=== PATIENT | female | born 1945 | race Caucasian/White ===

== ENCOUNTER 2018-12-03 02:49 | Emergency (ER) | payer MEDICARE ==
--- NOTE | 2018-12-03 03:30 | EDM.PDOC ---
ED HPI GENERAL MEDICAL PROBLEM - General Chief Complaint: Fever Stated Complaint: WEAK Time Seen by Provider: 12/03/18 03:05 Source of Information: Reports: Patient, Family History Limitations: Reports: No Limitations - History of Present Illness INITIAL COMMENTS - FREE TEXT/NARRATIVE: c/o cough and fever x 2 days was weak tonight and had difficulty getting out of bed and standing, did fall once 2y ago, here with has had flu vax with same sxs 5d ago, now getting over them no prior CV or pulmonary problems does have LE edema, takes a diuretic, does have rales at the bases chest has been sore from coughing took one APAP today, does not know the dose - Related Data Allergies Allergy/AdvReac Type Severity Reaction Status Date / Time latex Allergy Rash Verified 12/03/18 02:59 Home Meds: Home Meds Calcium Carbonate/Vitamin D3 [Calcium 500 + Vit D Caplet] 1 tab DAILY 12/03/18 [ History] Lisinopril 5 mg DAILY 12/03/18 [History] Multivit-Min/FA/Lycopene/Lut [Complete Multi 50+] 1 tab DAILY 12/03/18 [History] Omeprazole 20 mg DAILY 12/03/18 [History] Oxybutynin 2.5 mg PO TID 12/03/18 [History] Venlafaxine HCl [Venlafaxine ER] 37.5 mg DAILY 12/03/18 [History] atorvaSTATin [Lipitor] 10 mg BEDTIME 12/03/18 [History] ED ROS GENERAL - Review of Systems Review Of Systems: See Below Constitutional: Reports: Fever, Weakness HEENT: Reports: No Symptoms Respiratory: Reports: Cough. Denies: Sputum Cardiovascular: Reports: Chest Pain Endocrine: Reports: No Symptoms GI/Abdominal: Reports: No Symptoms : Reports: No Symptoms Musculoskeletal: Reports: No Symptoms Skin: Reports: No Symptoms Neurological: Reports: No Symptoms Psychiatric: Reports: No Symptoms Hematologic/Lymphatic: Reports: No Symptoms Immunologic: Reports: No Symptoms ED EXAM, GENERAL - Physical Exam Exam: See Below Exam Limited By: No Limitations General Appearance: Alert, WD/WN, No Apparent Distress, Other (pleasant, alert, cooperative, good eye contact, answer questions, rare harsh nonproductive cough) Eye Exam: Bilateral Eye: EOMI, Normal Inspection Ears: Normal External Exam, Normal Canal, Hearing Grossly Normal Nose: Normal Inspection, Normal Mucosa, No Blood Throat/Mouth: Normal Inspection, Normal Lips, Normal Teeth, Normal Gums, Normal Oropharynx, Normal Voice, No Airway Compromise Head: Atraumatic, Normocephalic Neck: Normal Inspection, Supple, Non-Tender, Full Range of Motion. No: Lymphadenopathy (R), Lymphadenopathy (L) Respiratory/Chest: No Respiratory Distress, No Accessory Muscle Use, Chest Non- Tender, Other (rales at bases posteriorly, otherwise clear, no wheeze) Cardiovascular: Regular Rate, Rhythm, No Murmur, No Rub, Other (1-2+ edema to knees b/l, 1+ to groin b/l, symmetric) GI/Abdominal: Soft, Non-Tender, No Distention Back Exam: Normal Inspection, Full Range of Motion, NT Extremities: Normal Range of Motion, Non-Tender Neurological: Alert, Oriented, CN II-XII Intact, Normal Cognition, No Motor/ Sensory Deficits Psychiatric: Normal Affect, Normal Mood Skin Exam: Warm, Dry, Intact, Normal Color, No Rash Lymphatic: No Adenopathy Course - Vital Signs Last Recorded V/S: Last Vital Signs Temp 37.8 C 12/03/18 04:00 Pulse 85 12/03/18 04:00 Resp 18 12/03/18 04:00 BP 142/64 H 12/03/18 04:00 Pulse Ox 99 12/03/18 04:00 - Orders/Labs/Meds Orders: Active Orders 24 hr Category Date Time Status EKG Documentation Completion [RC] ASDIRECTED Care 12/03/18 03:24 Active Chest 2V [CR] Stat Exams 12/03/18 03:23 Taken CULTURE BLOOD [BC] Stat Lab 12/03/18 03:20 Received Sodium Chloride 0.9% [Saline Flush] Med 12/03/18 04:54 Active 10 ml FLUSH ASDIRECTED PRN Peripheral IV Insertion Adult [OM.PC] Routine Oth 12/03/18 04:54 Ordered EKG 12 Lead [EK] Routine Ther 12/03/18 03:23 Ordered Medication Orders Sodium Chloride (Saline Flush) 10 ml FLUSH ASDIRECTED PRN PRN Reason: Keep Vein Open Labs: Laboratory Tests 12/03/18 12/03/18 12/03/18 Range/Units 03:20 03:45 03:45 WBC 5.4 (4.5-12.0) X10-3/uL RBC 4.56 (3.23-5.20) x10(6)uL Hgb 12.8 (11.5-15.5) g/dL Hct 39.9 (30.0-51.3) % MCV 87.6 (80-96) fL MCH 28.2 (27.7-33.6) pg MCHC 32.2 (32.2-35.4) g/dL RDW 13.0 (11.5-15.5) % Plt Count 241 (125-369) X10(3)uL MPV 7.8 (7.4-10.4) fL Neut % (Auto) 72.2 (46-82) % Lymph % (Auto) 13.2 (13-37) % [place] % (Auto) 13.7 H (4-12) % Eos % (Auto) 0 L (1.0-5.0) % Baso % (Auto) 1 (0-2) % Neut # (Auto) 4.0 (1.6-8.3) # Lymph # (Auto) 0.7 (0.6-5.0) # [place] # (Auto) 0.7 (0.0-1.3) # Eos # (Auto) 0.0 (0.0-0.8) # Baso # (Auto) 0.0 (0.0-0.2) # Sodium 139 (135-145) mmol/L Potassium 3.7 (3.5-5.3) mmol/L Chloride 101 (100-110) mmol/L Carbon Dioxide 27 (21-32) mmol/L BUN 13 (7-18) mg/dL Creatinine 0.9 (0.55-1.02) mg/dL Est Cr Clr Drug Dosing 49.51 mL/min Estimated GFR (MDRD) > 60 (>60) BUN/Creatinine Ratio 14.4 (9-20) Glucose 110 (80-116) mg/dL Calcium 9.1 (8.6-10.2) mg/dL Total Bilirubin 0.4 (0.1-1.3) mg/dL AST 34 H (5-25) IU/L ALT 26 (12-36) U/L Alkaline Phosphatase 75 (56-112) IU/L Troponin I < 0.017 L (<0.017-0.056) ng/mL NT-Pro-B Natriuret Pep (<=125) pg/mL Total Protein 7.8 (6.0-8.0) g/dL Albumin 3.6 (3.2-4.6) g/dL Globulin 4.2 g/dL Albumin/Globulin Ratio 0.9 Urine Color (YELLOW) Urine Appearance (CLEAR) Urine pH (5.0-6.5) Ur Specific Graham (1.010-1.025) Urine Protein (NEGATIVE) mg/dL Urine Glucose (UA) (NEGATIVE) mg/dL Urine Ketones (NEGATIVE) mg/dL Urine Occult Blood (NEGATIVE) Urine Nitrite (NEGATIVE) Urine Bilirubin (NEGATIVE) Urine Urobilinogen (NEGATIVE) mg/dL Ur Leukocyte Esterase (NEGATIVE) Urine RBC (0) Urine WBC (0) Ur Squamous Epith Cells (NS,R,O) Urine Bacteria (NS) 12/03/18 12/03/18 Range/Units 03:45 04:30 WBC (4.5-12.0) X10-3/uL RBC (3.23-5.20) x10(6)uL Hgb (11.5-15.5) g/dL Hct (30.0-51.3) % MCV (80-96) fL MCH (27.7-33.6) pg MCHC (32.2-35.4) g/dL RDW (11.5-15.5) % Plt Count (125-369) X10(3)uL MPV (7.4-10.4) fL Neut % (Auto) (46-82) % Lymph % (Auto) (13-37) % [place] % (Auto) (4-12) % Eos % (Auto) (1.0-5.0) % Baso % (Auto) (0-2) % Neut # (Auto) (1.6-8.3) # Lymph # (Auto) (0.6-5.0) # [place] # (Auto) (0.0-1.3) # Eos # (Auto) (0.0-0.8) # Baso # (Auto) (0.0-0.2) # Sodium (135-145) mmol/L Potassium (3.5-5.3) mmol/L Chloride (100-110) mmol/L Carbon Dioxide (21-32) mmol/L BUN (7-18) mg/dL Creatinine (0.55-1.02) mg/dL Est Cr Clr Drug Dosing mL/min Estimated GFR (MDRD) (>60) BUN/Creatinine Ratio (9-20) Glucose (80-116) mg/dL Calcium (8.6-10.2) mg/dL Total Bilirubin (0.1-1.3) mg/dL AST (5-25) IU/L ALT (12-36) U/L Alkaline Phosphatase (56-112) IU/L Troponin I (<0.017-0.056) ng/mL NT-Pro-B Natriuret Pep 182 H (<=125) pg/mL Total Protein (6.0-8.0) g/dL Albumin (3.2-4.6) g/dL Globulin g/dL Albumin/Globulin Ratio Urine Color Yellow (YELLOW) Urine Appearance Clear (CLEAR) Urine pH 5.0 (5.0-6.5) Ur Specific Graham 1.015 (1.010-1.025) Urine Protein Negative (NEGATIVE) mg/dL Urine Glucose (UA) Normal (NEGATIVE) mg/dL Urine Ketones Negative (NEGATIVE) mg/dL Urine Occult Blood Moderate H (NEGATIVE) Urine Nitrite Negative (NEGATIVE) Urine Bilirubin Negative (NEGATIVE) Urine Urobilinogen Normal (NEGATIVE) mg/dL Ur Leukocyte Esterase Negative (NEGATIVE) Urine RBC 0-5 (0) Urine WBC 0-5 (0) Ur Squamous Epith Cells Occasional (NS,R,O) Urine Bacteria Rare H (NS) Meds: Medications Generic Name Dose Route Start Last Admin Trade Name Freq PRN Reason Stop Dose Admin Sodium Chloride 10 ml 12/03/18 04:54 Saline Flush FLUSH ASDIRECTED PRN Keep Vein Open Discontinued Medications Generic Name Dose Route Start Last Admin Trade Name Freq PRN Reason Stop Dose Admin Ketorolac Tromethamine 15 mg 12/03/18 04:14 12/03/18 04:49 Toradol IVPUSH 12/03/18 04:15 15 mg ONETIME ONE Administration - Re-Assessments/Exams Free Text/Narrative Re-Assessment/Exam: 12/03/18 05:21 mild inc'd BNP and NSSTs change c/w HF, on ACEI, may need diuretic as per PCP however, also has urinary retention and has declined self cath in past, has had bladder surgery x 2 in [place] does have difficulty ambulating, may need assisted living and this was recommended to (who ambulates fine himself) inc'd monos c/w flu despite neg flu test, suspect fever will last another 3d Departure - Departure Time of Disposition: 05:29 Disposition: Home, Self-Care 01 Condition: Good Clinical Impression: Influenza, Fever, Monocytosis, Urinary retention, Heart failure, Weakness, Gait instability - Discharge Information *PRESCRIPTION DRUG MONITORING PROGRAM REVIEWED*: Not Applicable *COPY OF PRESCRIPTION DRUG MONITORING REPORT IN PATIENT SHARON: Not Applicable Instructions: Influenza, Adult, [id number], Ketorolac injection, Influenza, Adult Referrals: Tracy Daly NP [Primary Care Provider] - Forms: ED Department Discharge Additional Instructions: Continue current meds. In addition, for fever, take acetaminophen 500 mg 2 tabs and ibuprofen 200 mg 2 tabs 4 times a day for 3 days. Rest. Limit walking. Be careful when on your feet. Given your mobility issues, you may need to consider a different living arrangement such as assisted living. Discuss this with your doctor. See your doctor next week. Return to ED if you feel worse. - My Orders Last 24 Hours: My Active Orders 12/03/18 03:20 CULTURE BLOOD [BC] Stat 12/03/18 03:23 Chest 2V [CR] Stat EKG 12 Lead [EK] Routine 12/03/18 03:24 EKG Documentation Completion [RC] ASDIRECTED 12/03/18 04:54 Sodium Chloride 0.9% [Saline Flush] 10 ml FLUSH ASDIRECTED PRN Peripheral IV Insertion Adult [OM.PC] Routine - Assessment/Plan Last 24 Hours: My Active Orders 12/03/18 03:20 CULTURE BLOOD [BC] Stat 12/03/18 03:23 Chest 2V [CR] Stat EKG 12 Lead [EK] Routine 12/03/18 03:24 EKG Documentation Completion [RC] ASDIRECTED 12/03/18 04:54 Sodium Chloride 0.9% [Saline Flush] 10 ml FLUSH ASDIRECTED PRN Peripheral IV Insertion Adult [OM.PC] Routine
[2018-12-03] MEDS ORDERED: Ketorolac 30 MG/ML SDV IVPUSH ONE (04:14)
[2018-12-03] MEDS ORDERED: Sodium Chloride 0.9% 10 ML Syringe FLUSH PRN (04:54)
[2018-12-03] MEDS ORDERED: Acetaminophen 500 MG Tab PO ONE (05:20)
== END 2018-12-03 05:45 | disposition home or self-care (01) ==
LOC: FB.ED 02:49
DX: J11.1 Influenza due to unidentified influenza virus with other respiratory manifestations (principal); D72.821 Monocytosis (symptomatic); I50.9 Heart failure, unspecified; R53.1 Weakness; R33.9 Retention of urine, unspecified; R26.9 Unspecified abnormalities of gait and mobility; Z91.040 Latex allergy status; Z79.899 Other long term (current) drug therapy
CPT/HCPCS: 36415; 71046; 80053; 81001; 83880; 84484; 85025; 87040; 87081; 87804; 87880; 93005; 96374; 99285; A9270; J1885; 99284

== ENCOUNTER 2021-01-15 06:32 | Day surgery (SDC) | payer MEDICARE ==
[2021-01-15] MEDS ORDERED: fentaNYL 100 MCG/2 ML SDV IV ONE (06:33)
[2021-01-15] MEDS ORDERED: Midazolam 1 MG/ML 2 ML SDV IV ONE (06:33)
[2021-01-15] MEDS ORDERED: Sodium Chloride 0.9% 10 ML Syringe FLUSH PRN (06:45)
[2021-01-15] MEDS ORDERED: acetaZOLAMIDE 500 MG Cap.ER PO ONE ×2 (06:45→09:30)
[2021-01-15] MEDS ORDERED: Lactated Ringers 1,000 ML IV SCH (06:45)
--- NOTE | 2021-01-15 11:43 | OR ---
DATE OF OPERATION: 01/15/2021 SURGEON: Beverly Flynn MD PREOPERATIVE DIAGNOSIS: Total mature cataract, right eye. POSTOPERATIVE DIAGNOSIS: Total mature cataract, right eye. PROCEDURES PERFORMED: Phacoemulsification with intraocular lens placement, right eye. ASSISTANTS: None. ANESTHESIA: Local with sedation. COMPLICATIONS: None. BLOOD LOSS: None. IMPLANTS: Jose pre-loaded ACU0T0 25.5 diopter lens implanted. CDE: 17.79. DESCRIPTION OF PROCEDURE: After risks and benefits were reviewed with the patient, consent was obtained in the preoperative area, and the operative eye was marked with a surgical pen. In the preoperative area, a pledget was used to dilate the pupil consisting of a mixture of phenylephrine 10%, cyclopentolate 2%, moxifloxacin 0.5%, and bupivacaine 0.75%. The patient was taken to the operating room, where a time-out was performed, and the patient was placed under monitored anesthesia care. Topical tetracaine was used for anesthesia. The operative eye was prepped and draped for ophthalmic surgery, and the microscope was brought into position and focused. A paracentesis incision was made, followed by injection of preservative-free 1% lidocaine into the anterior chamber, followed by injection of Viscoat into the anterior chamber. A microkeratome blade was used to make a corneal limbal incision temporally. A cystotome was used to make the beginning of the capsulorrhexis, which was carried around 360 degrees in a curvilinear fashion using Utrata forceps. During this time, it was noted that the zonules were weak and the cataract was extremely mature. Exceptional care was used to hydrodissect the nucleus using a Larson cannula and a Straight cannula with BSS. The nucleus was removed in a divide and conquer manner using phacoemulsification. Irrigation and aspiration were used to remove the remaining cortical material. Provisc was used to inflate the capsular bag, and a Jose pre-loaded ACU0T0 25.5 diopter lens, serial number [id number] was injected into the capsular bag. A Sinskey hook was used to position and center the lens. Next, irrigation and aspiration was used to remove any remaining viscoelastic and cortical material from the anterior chamber. BSS on a cannula was used to inflate the anterior chamber and hydrate the wound. The wound was checked and found to be watertight. 1 mg of Moxifloxacin was injected into the anterior chamber. Drapes were removed and the eye was cleaned. A drop of brimonidine 0.2% and a drop of TobraDex was placed. The eye was shielded, and the patient was taken to the recovery room in stable condition. /[id number] FLETCHER/DAVID
== END 2021-01-15 09:50 | disposition home or self-care (01) ==
LOC: FB.SDS 06:32
PROVIDERS: ATTEND Ophthalmology
DX: H25.813 Combined forms of age-related cataract, bilateral (principal); H04.123 Dry eye syndrome of bilateral lacrimal glands; H52.31 Anisometropia; H52.03 Hypermetropia, bilateral; I10 Essential (primary) hypertension; E78.5 Hyperlipidemia, unspecified; Z88.8 Allergy status to other drugs, medicaments and biological substances; Z91.040 Latex allergy status; Z88.2 Allergy status to sulfonamides; Z79.82 Long term (current) use of aspirin; Z79.899 Other long term (current) drug therapy; Z87.891 Personal history of nicotine dependence; Z98.890 Other specified postprocedural states
CPT/HCPCS: 00142; 66984; A9270; J2250; J3010; V2632

== ENCOUNTER 2021-01-29 08:48 | Day surgery (SDC) | payer MEDICARE ==
[2021-01-29] MEDS ORDERED: fentaNYL 100 MCG/2 ML SDV IV ONE (08:49)
[2021-01-29] MEDS ORDERED: Midazolam 1 MG/ML 2 ML SDV IV ONE (08:49)
[2021-01-29] MEDS ORDERED: Lactated Ringers 1,000 ML IV PRN (09:00)
[2021-01-29] MEDS ORDERED: Sodium Chloride 0.9% 10 ML Syringe FLUSH PRN (09:00)
[2021-01-29] MEDS ORDERED: acetaZOLAMIDE 500 MG Cap.ER PO ONE (11:00)
--- NOTE | 2021-01-30 10:31 | OR ---
DATE OF OPERATION: 01/29/2021 SURGEON: Beverly Flynn MD PREOPERATIVE DIAGNOSIS: Visually significant cataract, left eye. POSTOPERATIVE DIAGNOSIS: Visually significant cataract, left eye. PROCEDURES PERFORMED: Phacoemulsification with intraocular lens placement, left eye. ASSISTANTS: None. ANESTHESIA: Local with sedation. COMPLICATIONS: None. BLOOD LOSS: None. IMPLANTS: Jose ACU0T0 25.5 diopter lens implanted. CDE: DESCRIPTION OF PROCEDURE: After risks and benefits were reviewed with the patient, consent was obtained in the preoperative area, and the operative eye was marked with a surgical pen. In the preoperative area, a pledget was used to dilate the pupil consisting of a mixture of phenylephrine 10%, cyclopentolate 2%, moxifloxacin 0.5%, and bupivacaine 0.75%. The patient was taken to the operating room, where a time-out was performed, and the patient was placed under monitored anesthesia care. Topical tetracaine was used for anesthesia. The operative eye was prepped and draped for ophthalmic surgery, and the microscope was brought into position and focused. A paracentesis incision was made, followed by injection of preservative-free 1% lidocaine into the anterior chamber, followed by injection of Viscoat into the anterior chamber. A microkeratome blade was used to make a corneal limbal incision temporally. A cystotome was used to make the beginning of the capsulorrhexis, which was carried around 360 degrees in a curvilinear fashion using Utrata forceps. A Larson cannula with BSS was used to hydrodissect and hydrodelineate the nucleus. The nucleus was removed in a divide and conquer manner using phacoemulsification. Irrigation and aspiration were used to remove the remaining cortical material. Provisc was used to inflate the capsular bag, and a pre-loaded Jose ACU0T0 25.5 diopter lens, serial number [id number] was injected into the capsular bag. A Sinskey hook was used to position and center the lens. Next, irrigation and aspiration was used to remove any remaining viscoelastic and cortical material from the anterior chamber. BSS on a cannula was used to inflate the anterior chamber and hydrate the wound. The wound was checked and found to be watertight. 1 mg of Moxifloxacin was injected into the anterior chamber. Drapes were removed and the eye was cleaned. A drop of brimonidine 0.2% and a drop of TobraDex was placed. The eye was shielded, and the patient was taken to the recovery room in stable condition. /[id number] FLETCHER/DAVID
== END 2021-01-29 11:25 | disposition home or self-care (01) ==
LOC: FB.SDS 08:48
PROVIDERS: ATTEND Ophthalmology
DX: H25.813 Combined forms of age-related cataract, bilateral (principal); H04.123 Dry eye syndrome of bilateral lacrimal glands; H52.31 Anisometropia; H52.03 Hypermetropia, bilateral; E78.5 Hyperlipidemia, unspecified; I10 Essential (primary) hypertension; Z98.890 Other specified postprocedural states; Z79.899 Other long term (current) drug therapy; Z88.8 Allergy status to other drugs, medicaments and biological substances; Z88.2 Allergy status to sulfonamides; Z88.1 Allergy status to other antibiotic agents; Z91.040 Latex allergy status; Z87.891 Personal history of nicotine dependence
CPT/HCPCS: 00142-QZ; A9270-GY; J2250; J3010; V2632

== ENCOUNTER 2021-07-18 23:55 | Emergency (ER) | payer MEDICARE ==
[2021-07-19] MEDS ORDERED: Ketorolac 30 MG/ML SDV IVPUSH STA (00:19)
[2021-07-19] MEDS ORDERED: Acetaminophen 500 MG Tab PO STA (00:19)
[2021-07-19] MEDS ORDERED: Ondansetron 4 MG/2 ML SDV IVPUSH STA (00:19)
[2021-07-19] MEDS ORDERED: Sodium Chloride 0.9% 1,000 ML IV SCH (00:30)
[2021-07-19] MEDS ORDERED: Potassium Chloride 20 MEQ Tab.ER PO STA (01:03)
--- NOTE | 2021-07-19 01:31 | EDM.PDOC ---
ED HPI GENERAL MEDICAL PROBLEM - General Chief Complaint: General Stated Complaint: WEAKNESS Time Seen by Provider: 07/19/21 00:50 Source of Information: Reports: Patient, Family - History of Present Illness INITIAL COMMENTS - FREE TEXT/NARRATIVE: Patient presented to the ED because of generalized body weakness after receiving her booster dose of Pfizer yesterday. She also c/o headache, nausea but no v omiting. there is no fever, chills, cough, cold. She has a history of chronic weakness but became worse after the Covid vaccine. - Related Data Allergies Allergy/AdvReac Type Severity Reaction Status Date / Time cephalexin [From Keflex] Allergy Cannot Verified 01/29/21 09:24 Remember latex Allergy Rash Verified 01/29/21 09:24 moxifloxacin [From Avelox] Allergy Other Verified 01/29/21 09:24 nitrofurantoin Allergy Cannot Verified 01/29/21 09:24 [From Macrodantin] Remember Sulfa (Sulfonamide Allergy Cannot Verified 01/29/21 09:24 Antibiotics) Remember tramadol [From Ultram] Allergy Cannot Verified 01/29/21 09:24 Remember Home Meds: Home Meds Calcium Carbonate/Vitamin D3 [Calcium 500 + Vit D Caplet] 1 tab DAILY 12/03/18 [History] Lisinopril 5 mg PO DAILY 12/03/18 [History] Multivit-Min/FA/Lycopen/Lutein [Complete Multi 50+] 1 tab DAILY 12/03/18 [History] Omeprazole 20 mg PO DAILY 12/03/18 [History] Venlafaxine HCl [Venlafaxine ER] 37.5 mg PO DAILY 12/03/18 [History] atorvaSTATin [Lipitor] 10 mg PO BEDTIME 12/03/18 [History] Acetaminophen [Tylenol] 325 mg PO Q6H PRN 01/10/21 [History] Aspirin 81 mg PO DAILY 01/10/21 [History] Carboxymethylcellulose Sodium [Refresh Tears 0.5%] 1 drop OP BEDTIME 01/10/21 [History] Potassium Chloride [Klor-Con M20] 40 meq PO BID #8 tab.er 07/19/21 [Rx] Past Medical History HEENT History: Reports: Cataract Other HEENT History: CHRONIC RHINITIS Cardiovascular History: Reports: High Cholesterol, Hypertension Respiratory History: Reports: SOB Gastrointestinal History: Reports: Chronic Constipation, GERD Genitourinary History: Reports: Urinary Incontinence [employer]ILER History: Reports: Other [employer]ILER History: [id number]; HYSTERECTOMY Musculoskeletal History: Reports: Arthritis, Back Pain, Chronic, Other (See Below) Other Musculoskeletal History: DJD; ARTHRODESIS Neurological History: Reports: Migraines Psychiatric History: Reports: Anxiety Endocrine/Metabolic History: Reports: Obesity/BMI 30+ Hematologic History: Reports: None Immunologic History: Reports: None Oncologic (Cancer) History: Reports: None Dermatologic History: Reports: None - Infectious Disease History Infectious Disease History: Reports: Chicken Pox, Measles, Mumps - Past Surgical History Head Surgeries/Procedures: Reports: None HEENT Surgical History: Reports: Cataract Surgery, Other (See Below) Other HEENT Surgeries/Procedures: ENDOSCOPY Cardiovascular Surgical History: Reports: None Respiratory Surgical History: Reports: None GI Surgical History: Reports: None, Colonoscopy Female Surgical History: Reports: Hysterectomy, Other (See Below) Other Female Surgeries/Procedures: A&P repair x 2. Endocrine Surgical History: Reports: None Neurological Surgical History: Reports: Lumbar Spine Musculoskeletal Surgical History: Reports: None, Carpal Tunnel, Knee Replacement Other Musculoskeletal Surgeries/Procedures:: carpal tunnel bilat, bilat knee replacements, Oncologic Surgical History: Reports: None Dermatological Surgical History: Reports: None Social & Family History - Family History Family Medical History: No Pertinent Family History - Caffeine Use Caffeine Use: Reports: None ED ROS GENERAL - Review of Systems Review Of Systems: See Below Constitutional: Reports: No Symptoms HEENT: Reports: No Symptoms Respiratory: Reports: No Symptoms Cardiovascular: Reports: No Symptoms Endocrine: Reports: No Symptoms GI/Abdominal: Reports: Nausea Musculoskeletal: Reports: No Symptoms Skin: Reports: No Symptoms Neurological: Reports: No Symptoms Psychiatric: Reports: No Symptoms ED EXAM, GENERAL - Physical Exam Exam: See Below Exam Limited By: No Limitations General Appearance: Alert, No Apparent Distress Eye Exam: Bilateral Eye: PERRL Ears: Normal External Exam, Normal Canal Nose: Normal Inspection, Normal Mucosa, No Blood Throat/Mouth: Normal Inspection, Normal Lips, Normal Teeth, Normal Gums, Normal Oropharynx, Normal Voice Head: Atraumatic, Normocephalic Neck: Normal Inspection, Supple, Non-Tender, Full Range of Motion Respiratory/Chest: No Respiratory Distress, Lungs Clear, Normal Breath Sounds, No Accessory Muscle Use, Chest Non-Tender Cardiovascular: Normal Peripheral Pulses, Regular Rate, Rhythm, No Edema, No Gallop, No JVD, No Murmur, No Rub GI/Abdominal: Normal Bowel Sounds, Soft, Non-Tender, No Organomegaly, No Dis tention, No Abnormal Bruit, No Mass Back Exam: Normal Inspection, Full Range of Motion Extremities: Normal Inspection, Normal Range of Motion, Non-Tender, No Pedal Edema, Normal Capillary Refill Neurological: Alert, Oriented, CN II-XII Intact, Normal Cognition Course - Vital Signs Text/Narrative:: Lab result was reviewed and discussed with patient and her Toradol 30 mg IV x1 Klor Con 40 meq PO x1 Zofran4 mg IV x1 Tylenol 1000 mg PO x1 - Orders/Labs/Meds Orders: Active Orders 24 hr Category Date Time Status Sodium Chloride 0.9% [Normal Saline] 1,000 ml Med 07/19/21 00:30 Active IV ASDIRECTED Medication Orders Sodium Chloride (Normal Saline) 1,000 mls @ 999 mls/hr IV ASDIRECTED ANGELLA Last Admin: 07/19/21 00:44 Dose: 999 mls/hr Documented by: ROSA Labs: Laboratory Tests 07/19/21 07/19/21 Range/Units 00:40 00:40 WBC 7.4 (3.0-10.3) x10-3/uL RBC 4.57 (3.60-5.20) x10(6)uL Hgb 13.2 (11.4-15.5) g/dL Hct 40.3 (34.2-48.2) % MCV 88.2 (76.7-100.5) fL MCH 29.0 (23.9-33.9) pg MCHC 32.9 (31.9-34.8) g/dL RDW 13.0 (12.3-16.5) % Plt Count 245 (151-488) x10(3)uL MPV 6.8 L (7.1-12.4) fL Neut % (Auto) 86.3 H (30.8-76.2) % Lymph % (Auto) 6.7 L (18.4-52.1) % [place] % (Auto) 6.2 (4.4-15.7) % Eos % (Auto) 0.7 (0.6-8.1) % Baso % (Auto) 0.1 L (0.2-1.5) % Neut # (Auto) 6.4 H (1.5-6.3) x10-3/uL Lymph # (Auto) 0.5 L (1.0-4.4) x10-3/uL [place] # (Auto) 0.5 (0.3-1.0) x10-3/uL Eos # (Auto) 0.1 (0.0-0.8) x10-3/uL Baso # (Auto) 0.0 (0.0-0.1) x10-3/uL Sodium 141 (135-145) mmol/L Potassium 3.4 L (3.5-5.3) mmol/L Chloride 102 (100-110) mmol/L Carbon Dioxide 28 (21-32) mmol/L BUN 19 H (7-18) mg/dL Creatinine 1.0 (0.55-1.02) mg/dL Est Cr Clr Drug Dosing TNP Estimated GFR (MDRD) 54 L (>60) BUN/Creatinine Ratio 19.0 (9-20) Glucose 137 H (80-116) mg/dL Calcium 8.8 (8.6-10.2) mg/dL Meds: Medications Generic Name Dose Route Start Last Admin Trade Name Freq PRN Reason Stop Dose Admin Sodium Chloride 1,000 mls @ 999 mls/hr 07/19/21 00:30 07/19/21 00:44 Normal Saline IV 999 mls/hr ASDIRECTED ANGELLA Administration Discontinued Medications Generic Name Dose Route Start Last Admin Trade Name Freq PRN Reason Stop Dose Admin Acetaminophen 1,000 mg 07/19/21 00:19 07/19/21 00:44 Acetaminophen 500 Mg Tab PO 07/19/21 00:20 1,000 mg NOW STA Administration Ketorolac Tromethamine 30 mg 07/19/21 00:19 07/19/21 00:44 Ketorolac 30 Mg/Ml Sdv IVPUSH 07/19/21 00:20 30 mg NOW STA Administration Ondansetron HCl 4 mg 07/19/21 00:19 07/19/21 00:44 Ondansetron 4 Mg/2 Ml Sdv IVPUSH 07/19/21 00:20 4 mg NOW STA Administration Potassium Chloride 40 meq 07/19/21 01:03 07/19/21 01:28 Potassium Chloride 20 Meq Tab.Er PO 07/19/21 01:04 40 meq NOW STA Administration Departure - Departure Time of Disposition: 01:45 Disposition: Home, Self-Care 01 Condition: Good Clinical Impression: Weakness, Hypokalemia - Discharge Information Prescriptions: Potassium Chloride [Klor-Con M20] 40 meq PO BID #8 tab.er Instructions: Hypokalemia, Weakness, Cifa-ly-Gtsp Referrals: Tracy Daly COCON[facility] COOKER [Primary Care Provider] - Forms: ED Department Discharge Additional Instructions: Please read discharge instructions on low potassium and weakness Klor con 20 meq, 2 tablets twice daily for 2 days Follow up as needed - My Orders Last 24 Hours: My Active Orders 07/19/21 00:30 Sodium Chloride 0.9% [Normal Saline] 1,000 ml IV ASDIRECTED - Assessment/Plan Last 24 Hours: My Active Orders 07/19/21 00:30 Sodium Chloride 0.9% [Normal Saline] 1,000 ml IV ASDIRECTED
== END 2021-07-19 02:05 | disposition home or self-care (01) ==
LOC: FB.ED 23:55
DX: R53.1 Weakness (principal); E87.6 Hypokalemia; E78.00 Pure hypercholesterolemia, unspecified; I10 Essential (primary) hypertension; K21.9 Gastro-esophageal reflux disease without esophagitis; E66.9 Obesity, unspecified; Z68.32 Body mass index [BMI] 32.0-32.9, adult; Z88.1 Allergy status to other antibiotic agents; Z91.040 Latex allergy status; Z88.2 Allergy status to sulfonamides; Z88.5 Allergy status to narcotic agent; Z79.82 Long term (current) use of aspirin; Z79.899 Other long term (current) drug therapy
CPT/HCPCS: 36415; 80048; 85025; 96374; 96375; 99285-25; A9270-GY; J1885; J2405; J7030

== ENCOUNTER 2022-01-17 08:47 | Emergency (ER) | payer MEDICARE ==
[2022-01-17] MEDS ORDERED: Lidocaine 1% PF 2 ML SDV INJECT ONE (08:48)
[2022-01-17] MEDS ORDERED: Meclizine 25 MG Tab PO STA (09:37)
[2022-01-17] MEDS ORDERED: Sodium Chloride 0.9% 10 ML Syringe FLUSH PRN (09:50)
== END 2022-01-17 11:20 | disposition home or self-care (01) ==
LOC: FB.ED 08:47
DX: R51.9 Headache, unspecified (principal); H81.10 Benign paroxysmal vertigo, unspecified ear; E78.00 Pure hypercholesterolemia, unspecified; I10 Essential (primary) hypertension; K21.9 Gastro-esophageal reflux disease without esophagitis; E66.9 Obesity, unspecified; Z68.34 Body mass index [BMI] 34.0-34.9, adult; Z88.1 Allergy status to other antibiotic agents; Z91.040 Latex allergy status; Z88.5 Allergy status to narcotic agent; Z88.2 Allergy status to sulfonamides; Z79.899 Other long term (current) drug therapy; Z79.82 Long term (current) use of aspirin; Z87.891 Personal history of nicotine dependence
CPT/HCPCS: 36410; 36415; 80053; 81001; 83880; 84484; 85025; 93005; 93010; 99283; 99285-25; A9270-GY; J3490

== ENCOUNTER 2024-04-02 18:53 | Inpatient (IN) | payer MEDICARE ==
[2024-04-02] MEDS: Acetaminophen 325 MG Tab PO ONE (19:38)
[2024-04-02 19:53] LABS: HEMATOCRIT 38.5 % (34.2-48.2); HEMOGLOBIN 12.7 g/dL (11.4-15.5); MEAN CORPUSCULAR HEMOGLOBIN 29.8 pg (23.9-33.9); MEAN CORPUSCULAR HGB CONC 32.9 g/dL (31.9-34.8); MEAN CORPUSCULAR VOLUME 90.5 fL (76.7-100.5); MEAN PLATELET VOLUME 7.4 fL (7.1-12.4); PLATELET COUNT,PLT 266 x10(3)uL (151-488); RED BLOOD CELL COUNT 4.25 x10(6)uL (3.60-5.20); RED CELL DISTRIBUTION WIDTH 13.5 % (12.3-16.5)
[2024-04-02 19:54] LABS: BLOOD UREA NITROGEN,BUN 15 mg/dL (7-18); CALCIUM 9.1 mg/dL (8.6-10.2); CARBON DIOXIDE,CO2 32 mmol/L (21-32); CHLORIDE,CL 102 mmol/L (100-110); EST CRCL DRUG DOSING (CG) 41.33 mL/min; ESTIMATED GFR 58 mL/min (>60); GLUCOSE RANDOM 130 mg/dL (80-116); POTASSIUM,K 3.6 mmol/L (3.5-5.3); SODIUM,NA 141 mmol/L (135-145)
[2024-04-02 20:00] LABS: A/G RATIO 0.7; ALANINE AMINOTRANSFERASE,ALT 23 U/L (12-36); ALBUMIN 3.2 g/dL (3.2-4.6); ALKALINE PHOSPHATASE 114 IU/L (56-112); ASPARTATE AMNIOTRANSFERASE,AST 19 IU/L (5-25); BILIRUBIN TOTAL 0.6 mg/dL (0.1-1.3); PROTEIN TOTAL,TP 7.7 g/dL (6.0-8.0)
[2024-04-02] MEDS: Sodium Chloride 0.9% 1,000 ML IV SCH ×2 (20:01→22:20)
[2024-04-02 20:04] LABS: LACTIC ACID 1.5 mmol/L (0.4-2.0)
[2024-04-02] MEDS ORDERED: Ibuprofen 600 MG Tab PO PRN (20:38)
[2024-04-02 20:43] LABS: BILIRUBIN,URINE NEGATIVE (NEGATIVE); GLUCOSE,URINE NORMAL (NORMAL); KETONES,URINE NEGATIVE (NEGATIVE); LEUKOCYTE ESTERASE,URINE NEGATIVE (NEGATIVE); NITRITE,URINE NEGATIVE (NEGATIVE); OCCULT BLOOD,URINE TRACE (NEGATIVE); PROTEIN,URINE NEGATIVE (NEGATIVE); UROBILINOGEN,URINE NORMAL (NEGATIVE)
[2024-04-02 20:44] LABS: APPEARANCE,URINE SLIGHTLY CLOUDY (CLEAR); BACTERIA,URINE MODERATE (NS); COLOR,URINE YELLOW (YELLOW); SQUAMOUS EPITHELIAL CELLS,UR OCCASIONAL (NS,R,O)
[2024-04-02 20:45] LABS: AMORPHOUS SEDIMENT,URINE MODERATE
[2024-04-02 20:54] LABS: LYMPHOCYTES PERCENT MAN 6 % (13-37); MONOCYTES PERCENT MAN 1 % (4-12); SEG NEUTROPHILS PERCENT MAN 93 % (46-82)
[2024-04-02] MEDS: Enoxaparin 40 MG/0.4 ML Syringe SUBCUT SCH (22:19)
[2024-04-02] MEDS: Ibuprofen 600 MG Tab PO PRN (22:20)
[2024-04-03 06:56] LABS: BASOPHILS PERCENT AUTO 0.3 % (0.2-1.5); EOSINOPHILS PERCENT AUTO 0.3 % (0.6-8.1); HEMATOCRIT 33.4 % (34.2-48.2); HEMOGLOBIN 11.1 g/dL (11.4-15.5); LYMPHOCYTES ABSOLUTE AUTO 0.9 x10-3/uL (1.0-4.4); LYMPHOCYTES PERCENT AUTO 16.8 % (18.4-52.1); MEAN CORPUSCULAR HEMOGLOBIN 30.2 pg (23.9-33.9); MEAN CORPUSCULAR HGB CONC 33.1 g/dL (31.9-34.8); MEAN CORPUSCULAR VOLUME 91.1 fL (76.7-100.5); MEAN PLATELET VOLUME 7.5 fL (7.1-12.4); MONOCYTES ABSOLUTE AUTO 0.5 x10-3/uL (0.3-1.0); MONOCYTES PERCENT AUTO 9.3 % (4.4-15.7); NEUTROPHILS ABSOLUTE AUTO 4.1 x10-3/uL (1.5-6.3); NEUTROPHILS PERCENT AUTO 73.3 % (30.8-76.2); PLATELET COUNT,PLT 219 x10(3)uL (151-488); RED BLOOD CELL COUNT 3.67 x10(6)uL (3.60-5.20); RED CELL DISTRIBUTION WIDTH 13.6 % (12.3-16.5); WHITE BLOOD CELL COUNT,WBC 5.6 x10-3/uL (3.0-10.3)
[2024-04-03 07:00] LABS: A/G RATIO 0.7; ALANINE AMINOTRANSFERASE,ALT 17 U/L (12-36); ALBUMIN 2.5 g/dL (3.2-4.6); ALKALINE PHOSPHATASE 84 IU/L (56-112); ASPARTATE AMNIOTRANSFERASE,AST 19 IU/L (5-25); BILIRUBIN TOTAL 0.5 mg/dL (0.1-1.3); BLOOD UREA NITROGEN,BUN 16 mg/dL (7-18); BUN/CREATININE RATIO 17.8 (9-20); CALCIUM 7.9 mg/dL (8.6-10.2); CARBON DIOXIDE,CO2 28 mmol/L (21-32); CHLORIDE,CL 106 mmol/L (100-110); CREATININE 0.9 mg/dL (0.55-1.02); EST CRCL DRUG DOSING (CG) 45.92 mL/min; ESTIMATED GFR 66 mL/min (>60); GLUCOSE RANDOM 90 mg/dL (80-116); POTASSIUM,K 3.2 mmol/L (3.5-5.3); PROTEIN TOTAL,TP 6.2 g/dL (6.0-8.0); SODIUM,NA 141 mmol/L (135-145)
[2024-04-03] MEDS: Potassium Chloride 20 MEQ Tab.ER PO ONE (11:48)
[2024-04-03] MEDS: Nirmatrelvir/Ritonavir 300 MG/100 MG Dosepak PO SCH (12:09)
[2024-04-03] MEDS: REMDESIVIR 200 MG in Sodium Chloride 0.9% 250 ML IV ONE (12:16)
[2024-04-03] MEDS: Fluticasone NASAL Spray 16 GM Bottle NASBOTH SCH (12:22)
[2024-04-03] MEDS: Acetaminophen 325 MG Tab PO PRN (13:23)
[2024-04-03] MEDS: Ertapenem 1 GM in Sodium Chloride 0.9% 50 ML IV SCH (13:26)
[2024-04-03] MEDS: Benzonatate 100 MG Cap PO PRN (20:23)
[2024-04-03] MEDS: atorvaSTATin 10 MG Tab PO SCH (20:24)
[2024-04-03] MEDS: Ibuprofen 600 MG Tab PO PRN (20:48)
[2024-04-03] MEDS: Sodium Chloride 0.65% Nasal Spray 45 ML Bottle NAS PRN (23:25)
[2024-04-04 07:01] LABS: BASOPHILS PERCENT AUTO 0.4 % (0.2-1.5); EOSINOPHILS PERCENT AUTO 0.6 % (0.6-8.1); HEMATOCRIT 33.9 % (34.2-48.2); HEMOGLOBIN 11.5 g/dL (11.4-15.5); LYMPHOCYTES ABSOLUTE AUTO 1.1 x10-3/uL (1.0-4.4); LYMPHOCYTES PERCENT AUTO 24.1 % (18.4-52.1); MEAN CORPUSCULAR HEMOGLOBIN 31.2 pg (23.9-33.9); MEAN CORPUSCULAR VOLUME 91.8 fL (76.7-100.5); MEAN PLATELET VOLUME 7.5 fL (7.1-12.4); MONOCYTES ABSOLUTE AUTO 0.5 x10-3/uL (0.3-1.0); MONOCYTES PERCENT AUTO 11.3 % (4.4-15.7); NEUTROPHILS ABSOLUTE AUTO 2.9 x10-3/uL (1.5-6.3); NEUTROPHILS PERCENT AUTO 63.6 % (30.8-76.2); PLATELET COUNT,PLT 204 x10(3)uL (151-488); WHITE BLOOD CELL COUNT,WBC 4.5 x10-3/uL (3.0-10.3)
[2024-04-04 07:13] LABS: A/G RATIO 0.6; ALANINE AMINOTRANSFERASE,ALT 22 U/L (12-36); ALBUMIN 2.3 g/dL (3.2-4.6); ALKALINE PHOSPHATASE 86 IU/L (56-112); ASPARTATE AMNIOTRANSFERASE,AST 23 IU/L (5-25); BILIRUBIN TOTAL 0.3 mg/dL (0.1-1.3); BLOOD UREA NITROGEN,BUN 11 mg/dL (7-18); BUN/CREATININE RATIO 13.8 (9-20); CALCIUM 7.7 mg/dL (8.6-10.2); CARBON DIOXIDE,CO2 27 mmol/L (21-32); CHLORIDE,CL 109 mmol/L (100-110); CREATININE 0.8 mg/dL (0.55-1.02); EST CRCL DRUG DOSING (CG) 51.66 mL/min; ESTIMATED GFR 76 mL/min (>60); GLUCOSE RANDOM 74 mg/dL (80-116); MAGNESIUM 1.8 mg/dL (1.8-2.5); POTASSIUM,K 3.5 mmol/L (3.5-5.3); PROTEIN TOTAL,TP 6.1 g/dL (6.0-8.0); SODIUM,NA 144 mmol/L (135-145)
[2024-04-04] MEDS: Hydrochlorothiazide 25 MG Tab PO SCH (09:18)
[2024-04-04] MEDS: Venlafaxine 37.5 MG Cap.ER PO SCH (09:18)
[2024-04-04] MEDS: Lisinopril 5 MG Tab PO SCH (09:19)
[2024-04-04] MEDS ORDERED: Loratadine 10 MG Tab PO PRN (09:33)
[2024-04-04] MEDS: Ondansetron 4 MG/2 ML SDV IV PRN (10:52)
[2024-04-04] MEDS: REMDESIVIR 100 MG in Sodium Chloride 0.9% 100 ML IV SCH (10:56)
[2024-04-04] MEDS: Pantoprazole 40 MG Tab.CR PO SCH (14:43)
[2024-04-04] MEDS: atorvaSTATin 20 MG Tab PO SCH (21:00)
[2024-04-05 06:40] LABS: BASOPHILS PERCENT AUTO 0.6 % (0.2-1.5); EOSINOPHILS ABSOLUTE AUTO 0.1 x10-3/uL (0.0-0.8); EOSINOPHILS PERCENT AUTO 2.7 % (0.6-8.1); HEMATOCRIT 34.2 % (34.2-48.2); HEMOGLOBIN 11.4 g/dL (11.4-15.5); LYMPHOCYTES ABSOLUTE AUTO 1.4 x10-3/uL (1.0-4.4); LYMPHOCYTES PERCENT AUTO 36.8 % (18.4-52.1); MEAN CORPUSCULAR HEMOGLOBIN 30.1 pg (23.9-33.9); MEAN CORPUSCULAR HGB CONC 33.2 g/dL (31.9-34.8); MEAN CORPUSCULAR VOLUME 90.6 fL (76.7-100.5); MEAN PLATELET VOLUME 7.4 fL (7.1-12.4); MONOCYTES ABSOLUTE AUTO 0.4 x10-3/uL (0.3-1.0); MONOCYTES PERCENT AUTO 10.1 % (4.4-15.7); NEUTROPHILS ABSOLUTE AUTO 1.9 x10-3/uL (1.5-6.3); NEUTROPHILS PERCENT AUTO 49.8 % (30.8-76.2); PLATELET COUNT,PLT 213 x10(3)uL (151-488); RED BLOOD CELL COUNT 3.78 x10(6)uL (3.60-5.20); RED CELL DISTRIBUTION WIDTH 13.6 % (12.3-16.5); WHITE BLOOD CELL COUNT,WBC 3.8 x10-3/uL (3.0-10.3)
[2024-04-05 06:51] LABS: A/G RATIO 0.6; ALANINE AMINOTRANSFERASE,ALT 16 U/L (12-36); ALBUMIN 2.2 g/dL (3.2-4.6); ALKALINE PHOSPHATASE 85 IU/L (56-112); ASPARTATE AMNIOTRANSFERASE,AST 23 IU/L (5-25); BILIRUBIN TOTAL 0.2 mg/dL (0.1-1.3); BLOOD UREA NITROGEN,BUN 10 mg/dL (7-18); BUN/CREATININE RATIO 14.3 (9-20); CARBON DIOXIDE,CO2 28 mmol/L (21-32); CHLORIDE,CL 107 mmol/L (100-110); CREATININE 0.7 mg/dL (0.55-1.02); EST CRCL DRUG DOSING (CG) 59.04 mL/min; ESTIMATED GFR 90 mL/min (>60); GLUCOSE RANDOM 85 mg/dL (80-116); POTASSIUM,K 3.3 mmol/L (3.5-5.3); SODIUM,NA 141 mmol/L (135-145)
[2024-04-05] MEDS: Potassium Chloride 20 MEQ Tab.ER PO ONE (09:36)
[2024-04-06 06:36] LABS: BASOPHILS PERCENT AUTO 0.6 % (0.2-1.5); EOSINOPHILS ABSOLUTE AUTO 0.1 x10-3/uL (0.0-0.8); EOSINOPHILS PERCENT AUTO 3.6 % (0.6-8.1); HEMATOCRIT 36.6 % (34.2-48.2); HEMOGLOBIN 12.5 g/dL (11.4-15.5); LYMPHOCYTES ABSOLUTE AUTO 1.8 x10-3/uL (1.0-4.4); LYMPHOCYTES PERCENT AUTO 45.4 % (18.4-52.1); MEAN CORPUSCULAR HEMOGLOBIN 30.3 pg (23.9-33.9); MEAN CORPUSCULAR HGB CONC 34.2 g/dL (31.9-34.8); MEAN CORPUSCULAR VOLUME 88.8 fL (76.7-100.5); MEAN PLATELET VOLUME 7.2 fL (7.1-12.4); MONOCYTES ABSOLUTE AUTO 0.3 x10-3/uL (0.3-1.0); MONOCYTES PERCENT AUTO 7.5 % (4.4-15.7); NEUTROPHILS ABSOLUTE AUTO 1.7 x10-3/uL (1.5-6.3); NEUTROPHILS PERCENT AUTO 42.9 % (30.8-76.2); PLATELET COUNT,PLT 270 x10(3)uL (151-488); RED BLOOD CELL COUNT 4.12 x10(6)uL (3.60-5.20); RED CELL DISTRIBUTION WIDTH 13.7 % (12.3-16.5); WHITE BLOOD CELL COUNT,WBC 3.9 x10-3/uL (3.0-10.3)
[2024-04-06 07:28] LABS: A/G RATIO 0.6; ALANINE AMINOTRANSFERASE,ALT 21 U/L (12-36); ALBUMIN 2.6 g/dL (3.2-4.6); ALKALINE PHOSPHATASE 91 IU/L (56-112); ASPARTATE AMNIOTRANSFERASE,AST 23 IU/L (5-25); BILIRUBIN TOTAL 0.2 mg/dL (0.1-1.3); BLOOD UREA NITROGEN,BUN 13 mg/dL (7-18); BUN/CREATININE RATIO 16.3 (9-20); CALCIUM 8.5 mg/dL (8.6-10.2); CARBON DIOXIDE,CO2 28 mmol/L (21-32); CHLORIDE,CL 105 mmol/L (100-110); CREATININE 0.8 mg/dL (0.55-1.02); EST CRCL DRUG DOSING (CG) 51.66 mL/min; ESTIMATED GFR 76 mL/min (>60); GLUCOSE RANDOM 94 mg/dL (80-116); POTASSIUM,K 3.7 mmol/L (3.5-5.3); PROTEIN TOTAL,TP 6.8 g/dL (6.0-8.0); SODIUM,NA 140 mmol/L (135-145)
[2024-04-06] MEDS: Sodium Chloride 0.9% 10 ML Syringe FLUSH PRN (11:29)
== END 2024-04-06 16:55 | disposition swing bed (61) | DRG 178 ==
LOC: FB.ED 18:53 → FB.MS 20:38 → OBSVTOIN 20:38
PROVIDERS: ADMIT Family Medicine; ATTEND Internal Medicine
PROC: XW033E5 Introduction of Remdesivir Anti-infective into Peripheral Vein, Percutaneous Approach, New Technology Group 5 (ICD-10-PCS; principal; 2024-04-02)
PROC: 8E0ZXY6 Isolation (ICD-10-PCS; 2024-04-02)
PROC: 0T9B70Z Drainage of Bladder with Drainage Device, Via Natural or Artificial Opening (ICD-10-PCS; 2024-04-04)
DX: U07.1 COVID-19 (principal); N39.0 Urinary tract infection, site not specified; R50.9 Fever, unspecified; R53.1 Weakness; I10 Essential (primary) hypertension; E78.5 Hyperlipidemia, unspecified; E78.00 Pure hypercholesterolemia, unspecified; K59.09 Other constipation; K21.9 Gastro-esophageal reflux disease without esophagitis; Z88.1 Allergy status to other antibiotic agents; M19.90 Unspecified osteoarthritis, unspecified site; Z88.5 Allergy status to narcotic agent; M54.9 Dorsalgia, unspecified; G89.29 Other chronic pain; G43.909 Migraine, unspecified, not intractable, without status migrainosus; F41.9 Anxiety disorder, unspecified; Z68.32 Body mass index [BMI] 32.0-32.9, adult; E66.9 Obesity, unspecified; Z96.653 Presence of artificial knee joint, bilateral; R33.9 Retention of urine, unspecified; E87.6 Hypokalemia; I11.0 Hypertensive heart disease with heart failure; I50.9 Heart failure, unspecified; Z88.8 Allergy status to other drugs, medicaments and biological substances; Z88.2 Allergy status to sulfonamides; Z91.040 Latex allergy status; Z79.82 Long term (current) use of aspirin; Z79.899 Other long term (current) drug therapy; Z90.710 Acquired absence of both cervix and uterus; Z98.1 Arthrodesis status; Z68.34 Body mass index [BMI] 34.0-34.9, adult; Z98.49 Cataract extraction status, unspecified eye; Z97.8 Presence of other specified devices
CPT/HCPCS: 36415; 71045; 80053; 81001; 83605; 85025; 86140; 87040 ×2; 87086; 96360; 99285 ×2; A9270; C1758 ×2; J7030; U0002; 51701; 51702; 83735; 87088; 87186; 97116-GP; 97161-GP; 97165-GO; 97530-GO; 97530-GP; 97535-GO; J1335; J1650; J2405; J3490; J7050

== ENCOUNTER 2024-04-06 17:04 | Inpatient (IN) | payer MEDICARE ==
[2024-04-06] MEDS ORDERED: Acetaminophen 325 MG Tab PO PRN (17:24)
[2024-04-06] MEDS ORDERED: Benzonatate 100 MG Cap PO PRN (17:24)
[2024-04-06] MEDS: atorvaSTATin 20 MG Tab PO SCH (20:35)
[2024-04-07] MEDS: Pantoprazole 40 MG Tab.CR PO SCH (06:43)
[2024-04-07] MEDS: Lisinopril 5 MG Tab PO SCH (08:37)
[2024-04-07] MEDS: Sodium Chloride 0.65% Nasal Spray 45 ML Bottle NAS PRN (08:38)
[2024-04-07] MEDS: Hydrochlorothiazide 25 MG Tab PO SCH (08:38)
[2024-04-07] MEDS: Venlafaxine 37.5 MG Cap.ER PO SCH (08:39)
[2024-04-07] MEDS: Multivitamins with Iron/Calcium/Folic Acid/Minerals Tab PO SCH (08:41)
[2024-04-07] MEDS: Calcium Carbonate 500 MG Tablet PO SCH (08:41)
[2024-04-07] MEDS: Fluticasone NASAL Spray 16 GM Bottle NASBOTH SCH (08:43)
[2024-04-07] MEDS ORDERED: Non-Formulary Medication 1 Each (Omeprazole [Omeprazole] 20 MG Cap.Cr) PO SCH (09:00)
[2024-04-07] MEDS: Amoxicillin/Clavulanate K 875-125 MG Tab PO STA (16:52)
[2024-04-08 06:11] LABS: BASOPHILS PERCENT AUTO 0.3 % (0.2-1.5); EOSINOPHILS ABSOLUTE AUTO 0.2 x10-3/uL (0.0-0.8); EOSINOPHILS PERCENT AUTO 3.3 % (0.6-8.1); HEMATOCRIT 35.5 % (34.2-48.2); HEMOGLOBIN 12.3 g/dL (11.4-15.5); LYMPHOCYTES ABSOLUTE AUTO 1.5 x10-3/uL (1.0-4.4); LYMPHOCYTES PERCENT AUTO 22.2 % (18.4-52.1); MEAN CORPUSCULAR HEMOGLOBIN 30.4 pg (23.9-33.9); MEAN CORPUSCULAR HGB CONC 34.5 g/dL (31.9-34.8); MEAN CORPUSCULAR VOLUME 88.1 fL (76.7-100.5); MEAN PLATELET VOLUME 7.4 fL (7.1-12.4); MONOCYTES ABSOLUTE AUTO 0.5 x10-3/uL (0.3-1.0); MONOCYTES PERCENT AUTO 6.9 % (4.4-15.7); NEUTROPHILS ABSOLUTE AUTO 4.6 x10-3/uL (1.5-6.3); NEUTROPHILS PERCENT AUTO 67.3 % (30.8-76.2); PLATELET COUNT,PLT 257 x10(3)uL (151-488); RED BLOOD CELL COUNT 4.03 x10(6)uL (3.60-5.20); RED CELL DISTRIBUTION WIDTH 13.6 % (12.3-16.5); WHITE BLOOD CELL COUNT,WBC 6.8 x10-3/uL (3.0-10.3)
[2024-04-08 06:12] LABS: A/G RATIO 0.7; ALANINE AMINOTRANSFERASE,ALT 24 U/L (12-36); ALBUMIN 2.6 g/dL (3.2-4.6); ALKALINE PHOSPHATASE 86 IU/L (56-112); ASPARTATE AMNIOTRANSFERASE,AST 24 IU/L (5-25); BILIRUBIN TOTAL 0.5 mg/dL (0.1-1.3); BLOOD UREA NITROGEN,BUN 15 mg/dL (7-18); BUN/CREATININE RATIO 18.8 (9-20); CALCIUM 8.4 mg/dL (8.6-10.2); CARBON DIOXIDE,CO2 31 mmol/L (21-32); CHLORIDE,CL 104 mmol/L (100-110); CREATININE 0.8 mg/dL (0.55-1.02); EST CRCL DRUG DOSING (CG) 51.66 mL/min; ESTIMATED GFR 76 mL/min (>60); GLUCOSE RANDOM 99 mg/dL (80-116); POTASSIUM,K 3.6 mmol/L (3.5-5.3); PROTEIN TOTAL,TP 6.6 g/dL (6.0-8.0); SODIUM,NA 141 mmol/L (135-145)
== END 2024-04-11 16:55 | disposition home health service (06) | DRG 947 ==
LOC: UNDOADMIN 17:04 → FB.MS 17:04
PROVIDERS: ADMIT Internal Medicine; ATTEND Family Medicine
DX: R53.1 Weakness (principal); U07.1 COVID-19; N39.0 Urinary tract infection, site not specified; R53.81 Other malaise; R53.83 Other fatigue; E78.00 Pure hypercholesterolemia, unspecified; K21.9 Gastro-esophageal reflux disease without esophagitis; K59.09 Other constipation; M19.90 Unspecified osteoarthritis, unspecified site; G89.29 Other chronic pain; M54.9 Dorsalgia, unspecified; I11.0 Hypertensive heart disease with heart failure; I50.9 Heart failure, unspecified; E66.9 Obesity, unspecified; F41.9 Anxiety disorder, unspecified; E87.6 Hypokalemia; G43.909 Migraine, unspecified, not intractable, without status migrainosus; Z91.040 Latex allergy status; Z88.5 Allergy status to narcotic agent; Z88.2 Allergy status to sulfonamides; Z88.1 Allergy status to other antibiotic agents; Z79.899 Other long term (current) drug therapy; Z98.49 Cataract extraction status, unspecified eye; Z90.710 Acquired absence of both cervix and uterus; Z98.890 Other specified postprocedural states; Z96.659 Presence of unspecified artificial knee joint
CPT/HCPCS: 36415; 80053; 85025; 86140; 97530-GO; 97530-GP; 97535-GO; 99305; 99316; A9270-GY